=== PATIENT | male | born 1960 | race Asian ===

== ENCOUNTER 2018-09-10 09:12 | Emergency (ER) | payer OTHER | END 2018-09-10 11:01 | disposition home or self-care (01) | LOC: E/R 09:12 | DX: S13.4XXA Sprain of ligaments of cervical spine, initial encounter (principal); I10 Essential (primary) hypertension; V49.40XA Driver injured in collision with unspecified motor vehicles in traffic accident, initial encounter; Y92.410 Unspecified street and highway as the place of occurrence of the external cause | CPT/HCPCS: 72040; 99283 ==